=== PATIENT | female | born 1985 | race Caucasian/White ===

== ENCOUNTER 2018-07-18 16:41 | Emergency (ER) | payer BC, OTHER ==
[2018-07-18] MEDS ORDERED: Lidocaine 1% 20 ML MDV INJECT ONE (16:56)
[2018-07-18] MEDS ORDERED: Bupivacaine 0.5% 10 ML SDV INJECT ONE (16:56)
[2018-07-18] MEDS ORDERED: Diphtheria,Pertussis(Acell),Tetanus Vaccine 0.5 ML Syringe IM ONE (16:57)
--- NOTE | 2018-07-18 17:00 | EDM.PDOC ---
<Saúl Somers E - Last Filed: 07/18/18 18:31> ED HPI GENERAL MEDICAL PROBLEM - General Chief Complaint: Upper Extremity Injury/Pain Stated Complaint: INJURED FINGER Time Seen by Provider: 07/18/18 16:56 Source of Information: Reports: Patient History Limitations: Reports: No Limitations - History of Present Illness INITIAL COMMENTS - FREE TEXT/NARRATIVE: HISTORY AND PHYSICAL: Please note that Dr. Matthew had initially signed up for this patient but I evaluated and sutured the patient. Please see my H&P. History of present illness: Patient is a 32-year-old female who presents to the ED today after cutting her left ring finger on a jar of salsa the grocery store. She states that the jar of salsa fell and she went to go grab it slicing her finger just prior to arrival to the ED. She states she had moderate bleeding presented to the ED right away. She feels dizzy, lightheaded, and cold. She is up-to-date with her tetanus vaccine. She states she is able to feel and move the finger without difficulty. She states her pain is an 8 out of 10. She states she has had to have sutures in the past which have bled more than normal but does not have any bleeding disorder that she is aware of. She denies fever, chills, vomiting, diarrhea, difficulties breathing, shortness of breath, chest pain, or all or GI/ cardiovascular respiratory symptoms. She denies any health history. Review of systems: As per history of present illness and below otherwise all systems reviewed and negative. Past medical history: As per history of present illness and as reviewed below otherwise noncontributory. Surgical history: As per history of present illness and as reviewed below otherwise noncontributory. Social history: See social history for further information Family history: As per history of present illness and as reviewed below otherwise noncontributory. Physical exam: General: Patient is alert, oriented, in mild distress. She is clammy and nervous about her finger. Nontoxic appearing and in no acute distress. HEENT: Atraumatic, normocephalic, pupils equal and reactive bilaterally, negative for conjunctival pallor or scleral icterus, mucous membranes moist, TMs normal bilaterally, throat clear, neck supple, nontender, trachea midline. No drooling or trismus noted. No meningeal signs. No hot potato voice noted. Lungs: Clear to auscultation, breath sounds equal bilaterally, chest nontender. Heart: S1S2, regular rate and rhythm without overt murmur Abdomen: Soft, nondistended, nontender. Negative for masses or hepatosplenomegaly. Negative for costovertebral tenderness. Pelvis: Stable nontender. Genitourinary: Deferred. Rectal: Deferred. Skin: See EXTREMITIES. Otherwise skin is intact, warm, dry. No lesions or rashes noted. Extremities: On left hand, there is a 3 cm laceration on the volar aspect of the fourth digit. Patient was able to feel the finger and move finger. Laceration did not involve the nail bed as it is mid finger. Appears to have no tendon involvement. Capillary refill less than 3 seconds. Strong radial pulse. Neurovascular unremarkable. Neuro: Patient does have full strength and sensation of all fingers on her right hand. She has full strength the right arm. Radial pulse is intact. Awake, alert, oriented. Cranial nerves II through XII unremarkable. Cerebellum unremarkable. Motor and sensory unremarkable throughout. Exam nonfocal. Notes: I was called in by the nurse to come assess the patient quickly. Upon initial exam, patient was clammy and embracing her right arm. She was holding a grocery bag over her right hand with about 2 cups worth of blood in the bag. I immediately applied tourniquet to her right arm to stop the bleeding. IV was placed and fluids were started immediately. Bleeding stopped following tourniquet placement. I was then able to anesthetize the area using 1% lidocaine and .5% bupivacaine. Patient was no longer clammy and was in no acute distress. I then used standard protocol for suture placement. I explored the wound and was then unable to visualize any actively bleeding artery with release of tourniquet. I was able to visualize tendon which was intact. She was asked to move fingers and she was able to do so. Dr. Matthew did confirm there was not an actively bleeding artery requiring suture tie. The bleeding appeared to be generalized from the surrounding skin tissue. Sutures were placed according to protocol. No bleeding was noted upon final closure of wound. Patient tolerated the procedure well and then was taken to imaging. Finger fourth digit x-ray shows no acute osseous injury or abnormalities noted. Discussed with patient the need to have sutures removed in 7-10 days. Also discussed with patient the need for follow-up with either her primary care provider or hand surgeon (Dr. Duarte). Patient does feel improved and has been up moving in the room without any concerns of feeling lightheaded. Her vital signs are stable. Patient expresses her understanding and agrees to plan of care. Diagnostics: Fourth digit x-ray. Therapeutics: Sutures, lidocaine 1%, bupivacaine 0.5% Prescription: None Impression: 1. Fourth digit laceration, left Plan: 1. You can take ibuprofen and tylenol as needed for finger pain. 2. You will need the sutures removed in approximately 7-10 days. You can return to the ED to have these removed. 3. You can use ice for 10 minutes every few hours to help minimize swelling. 4. Follow up with primary care provider of hand surgeon (Dr. Duarte) in the next 1-2 days. 5. Return to the ED as needed and as discussed. Definitive disposition and diagnosis as appropriate pending reevaluation and review of above. - Related Data Allergies Allergy/AdvReac Type Severity Reaction Status Date / Time No Known Allergies Allergy Verified 07/18/18 16:57 Home Meds: Home Meds . [No Known Home Meds] 07/18/18 [History] Review of Systems - Review of Systems Review Of Systems: ROS reveals no pertinent complaints other than HPI. ED EXAM, GENERAL - Physical Exam Exam: See Below ED TRAUMA EXTREMITY PROCEDURES - Laceration/Wound Repair Right Digit - 4th (Ring) Lac/Wound Length In cm: 3 Appearance: Irregular, Clean Distal NVT: Neuro & Vascular Intact, No Tendon Injury Anesthetic Type: Digital Local Anesthesia - Lidocaine (Xylocaine): 1% Plain Local Anesthesia - Bupivicaine (Marcaine): 0.5% Plain Local Anesthetic Volume: 4cc Skin Prep: Chlorhexidine (Hibiciens) Exploration/Debridement/Repair: Wound Explored, Explored to Base Closed With: Sutures Suture Size: other (5-0) # of Sutures: 8 Suture Type: Silk Sterile Dressing Applied: Nurse Tetanus Status Addressed: Yes Complications: No Course - Vital Signs Last Recorded V/S: Last Vital Signs Temp 97.2 F 07/18/18 16:55 Pulse 72 07/18/18 16:55 Resp 18 07/18/18 16:55 BP 143/84 H 07/18/18 16:55 Pulse Ox 97 07/18/18 16:55 - Orders/Labs/Meds Orders: Active Orders 24 hr Category Date Time Status Vaccines to be Administered [RC] PER UNIT ROUTINE Care 07/18/18 16:58 Active Meds: Medications Discontinued Medications Generic Name Dose Route Start Last Admin Trade Name Humble PRN Reason Stop Dose Admin Bupivacaine HCl 10 ml 07/18/18 16:56 07/18/18 17:20 Sensorcaine-Mpf 0.5% INJECT 07/18/18 16:57 5 ml ONETIME ONE Administration Diphtheria/Tetanus/Acell Pertussis 0.5 ml 07/18/18 16:57 07/18/18 18:40 Adacel IM 07/18/18 16:58 0.5 ml .ONCE ONE Administration Lidocaine HCl Confirm 07/18/18 17:06 07/18/18 17:20 Xylocaine-Mpf 1% Administered 07/18/18 17:07 1 mls/hr Dose Administration 10 mls @ as directed .ROUTE .STK-MED ONE Lidocaine HCl 20 ml 07/18/18 16:56 07/18/18 19:24 Xylocaine 1% INJECT 07/18/18 16:57 Not Given ONETIME ONE Departure - Departure Time of Disposition: 18:32 Disposition: Home, Self-Care 01 Clinical Impression: Laceration - Discharge Information Instructions: Laceration Care, Adult Referrals: PCP,None [Primary Care Provider] - Forms: ED Department Discharge Additional Instructions: The following information is given to patients seen in the emergency department who are being discharged to home. This information is to outline your options for follow-up care. We provide all patients seen in our emergency department with a follow-up referral. The need for follow-up, as well as the timing and circumstances, are variable depending upon the specifics of your emergency department visit. If you don't have a primary care physician on staff, we will provide you with a referral. We always advise you to contact your personal physician following an emergency department visit to inform them of the circumstance of the visit and for follow-up with them and/or the need for any referrals to a consulting specialist. The emergency department will also refer you to a specialist when appropriate. This referral assures that you have the opportunity for follow-up care with a specialist. All of these measure are taken in an effort to provide you with optimal care, which includes your follow-up. Under all circumstances we always encourage you to contact your private physician who remains a resource for coordinating your care. When calling for follow-up care, please make the office aware that this follow-up is from your recent emergency room visit. If for any reason you are refused follow-up, please contact the [facility] Emergency Department at and asked to speak to the emergency department charge nurse. [facility] [address] [place] [id number] [facility] [address] [place] [address] [id number] [facility] Specialty Care - Plastic Surgery Professional Building [address] [place] [address], [address] [place] [address] 1. You can take ibuprofen and tylenol as needed for finger pain. 2. You will need the sutures removed in approximately 7-10 days. You can return to the ED to have these removed. 3. You can use ice for 10 minutes every few hours to help minimize swelling. 4. Follow up with primary care provider of hand surgeon (Dr. Duarte) in the next 1-2 days.. 5. Return to the ED as needed and as discussed. - My Orders Last 24 Hours: My Active Orders 07/18/18 16:58 Vaccines to be Administered [RC] PER UNIT ROUTINE - Assessment/Plan Last 24 Hours: My Active Orders 07/18/18 16:58 Vaccines to be Administered [RC] PER UNIT ROUTINE <Shilpa Matthew - Last Filed: 07/19/18 10:20> ED HPI GENERAL MEDICAL PROBLEM - General Source of Information: Reports: Patient History Limitations: Reports: No Limitations - History of Present Illness INITIAL COMMENTS - FREE TEXT/NARRATIVE: History of present illness: [] Review of systems: As per history of present illness and below otherwise all systems reviewed and negative. Past medical history: As per history of present illness and as reviewed below otherwise noncontributory. Surgical history: As per history of present illness and as reviewed below otherwise noncontributory. Social history: No reported history of drug or alcohol abuse. Family history: As per history of present illness and as reviewed below otherwise noncontributory. Physical exam: General: Well developed, well nourished in NAD HEENT: Atraumatic, normocephalic, pupils reactive, negative for conjunctival pallor or scleral icterus, mucous membranes moist, throat clear, neck supple, nontender, trachea midline. Lungs: Clear to auscultation, breath sounds equal bilaterally, chest nontender. Heart: S1S2, regular, negative for clicks, rubs, or JVD. Abdomen: NABS, Soft, nondistended, nontender. Negative for masses or hepatosplenomegaly. Negative for costovertebral tenderness. Pelvis: Stable nontender. Genitourinary: Deferred. Rectal: Deferred. Extremities: Atraumatic, negative for cords or calf pain. Neurovascular unremarkable. Neuro: Awake, alert, oriented. Cranial nerves II through XII unremarkable. Cerebellum unremarkable. Motor and sensory unremarkable throughout. Exam nonfocal. Skin:warm and dry Diagnostics: Therapeutics: ED Course: Impression: Prescriptions: Plan: Definitive disposition and diagnosis as appropriate pending reevaluation and review of above. Right Finger-Ring Pain Score (Numeric/FACES): 4 Review of Systems - Review of Systems Review Of Systems: ROS reveals no pertinent complaints other than HPI. ED EXAM, GENERAL - Physical Exam Exam: See Below (See history of present illness)
--- NOTE | 2018-07-18 18:21 | CR ---
INDICATION: Laceration to 4th digit TECHNIQUE: Finger radiograph 3 views right 4th COMPARISON: None FINDINGS: Evaluation of the digits on the lateral examination is moderately degraded due to overlapped finger positioning. Bone: No acute fractures or aggressive bone lesions are identified. Joint: The metacarpophalangeal and interphalangeal joints are normal in appearance. Soft tissue: Unremarkable. No radiopaque foreign bodies are seen. IMPRESSION: 1. No acute osseous injuries or abnormalities are noted. Dictated by Anselmo Cabrera MD @ 07/18/2018 6:19:17 PM Dictated by: Anselmo Cabrera MD @ 07/18/2018 18:20:28 (Electronically Signed)
== END 2018-07-18 18:50 | disposition home or self-care (01) ==
LOC: MW.ED 16:41
DX: S61.214A Laceration without foreign body of right ring finger without damage to nail, initial encounter (principal); Z23 Encounter for immunization; W26.8XXA Contact with other sharp object(s), not elsewhere classified, initial encounter; Y92.512 Supermarket, store or market as the place of occurrence of the external cause
CPT/HCPCS: 12002; 73140; 90471; 90715; 99282; J3490

== ENCOUNTER 2018-07-20 14:31 | Emergency (ER) | payer BC ==
--- NOTE | 2018-07-20 15:04 | EDM.PDOC ---
ED HPI GENERAL MEDICAL PROBLEM - General Chief Complaint: Wound Recheck Stated Complaint: INJURED FINGER Time Seen by Provider: 07/20/18 14:57 Source of Information: Reports: Patient History Limitations: Reports: No Limitations - History of Present Illness INITIAL COMMENTS - FREE TEXT/NARRATIVE: HISTORY AND PHYSICAL: History of present illness: Patient is a 32-year-old female here with wound recheck. She was seen in the ED 2 days ago after cutting her finger and received sutures on the right ring finger. She states she just took the dressing off today and was concerned about the color of her finger and states it felt warm and she still does not have feeling in the tip of her finger. She denies any purulent drainage from the wound and no fevers. Review of systems: As per history of present illness and below otherwise all systems reviewed and negative. Past medical history: As per history of present illness and as reviewed below otherwise noncontributory. Surgical history: As per history of present illness and as reviewed below otherwise noncontributory. Social history: No reported history of drug or alcohol abuse. Family history: As per history of present illness and as reviewed below otherwise noncontributory. Physical exam: General: Patient sitting comfortably in no acute distress and nontoxic appearing HEENT: Atraumatic, normocephalic, pupils reactive, negative for conjunctival pallor or scleral icterus, mucous membranes moist, throat clear, neck supple, nontender, trachea midline. No meningeal signs. Lungs: Clear to auscultation, breath sounds equal bilaterally, chest nontender. Heart: S1S2, regular, negative for clicks, rubs, or overt murmur. Abdomen: Soft, nondistended, nontender. Negative for masses or hepatosplenomegaly. Negative for costovertebral tenderness. Pelvis: Stable nontender. Genitourinary: Deferred. Rectal: Deferred. Extremities: Sutures are in place on the palmar aspect of the right ring finger without any surrounding erythema, warmth or purulent drainage. There is slight ecchymotic area on the ulnar side of the finger. Normal capillary refill. negative for cords or calf pain. Neurovascular unremarkable. Neuro: Awake, alert, oriented. Cranial nerves II through XII unremarkable. Cerebellum unremarkable. Motor and sensory unremarkable throughout. Exam nonfocal. Notes: Figure does not appear to be infected and explained to the patient that due to the injury there is some swelling which is causing the ecchymosis, warmth and likely the diminished sensation in the tip of the finger which should resolved as the wound heals and swelling resolves. Diagnostics: None Therapeutics: None Prescriptions: None Impression: Wound recheck Plan: 1. Keep the area clean and dry as instructed. 2. Follow-up with Dr. Duarte as discussed at your previous visit 3. Return to ED as needed as discussed Definitive disposition and diagnosis as appropriate pending reevaluation and review of above. Right Finger-Index Pain Score (Numeric/FACES): 2 - Related Data Allergies Allergy/AdvReac Type Severity Reaction Status Date / Time No Known Allergies Allergy Verified 07/20/18 14:49 Home Meds: Home Meds . [No Known Home Meds] 07/18/18 [History] Past Medical History - Past Health History Medical/Surgical History: Denies Medical/Surgical History Cardiovascular History: Reports: Heart Murmur Social & Family History - Family History Family Medical History: Noncontributory - Tobacco Use Smoking Status *Q: Current Every Day Smoker Years of Tobacco use: 15 Packs/Tins Daily: 0.5 - Caffeine Use Caffeine Use: Reports: Coffee - Recreational Drug Use Recreational Drug Use: No ED ROS GENERAL - Review of Systems Review Of Systems: ROS reveals no pertinent complaints other than HPI. ED EXAM, SKIN/RASH Exam: See Below (see dictation) Course - Vital Signs Last Recorded V/S: Last Vital Signs Temp 98.2 F 07/20/18 14:47 Pulse 68 07/20/18 14:47 Resp 18 07/20/18 14:47 BP 115/71 07/20/18 14:47 Pulse Ox 100 07/20/18 14:47 Departure - Departure Time of Disposition: 14:57 Disposition: Home, Self-Care 01 Condition: Good Clinical Impression: Encounter for wound re-check - Discharge Information Referrals: PCP,Unknown [Primary Care Provider] - Additional Instructions: The following information is given to patients seen in the emergency department who are being discharged to home. This information is to outline your options for follow-up care. We provide all patients seen in our emergency department with a follow-up referral. The need for follow-up, as well as the timing and circumstances, are variable depending upon the specifics of your emergency department visit. If you don't have a primary care physician on staff, we will provide you with a referral. We always advise you to contact your personal physician following an emergency department visit to inform them of the circumstance of the visit and for follow-up with them and/or the need for any referrals to a consulting specialist. The emergency department will also refer you to a specialist when appropriate. This referral assures that you have the opportunity for follow-up care with a specialist. All of these measure are taken in an effort to provide you with optimal care, which includes your follow-up. Under all circumstances we always encourage you to contact your private physician who remains a resource for coordinating your care. When calling for follow-up care, please make the office aware that this follow-up is from your recent emergency room visit. If for any reason you are refused follow-up, please contact the [facility] Emergency Department at and asked to speak to the emergency department charge nurse. [facility] Specialty Care - Hand & Plastic Surgery Professional Building [address] [place] [address], [address] [place] [address] 1. Keep the Area clean and dry as instructed. 2. Follow-up with Dr. Duarte as discussed at your previous visit 3. Return to ED as needed as discussed
== END 2018-07-20 15:22 | disposition home or self-care (01) ==
LOC: MW.ED 14:31
DX: S61.214D Laceration without foreign body of right ring finger without damage to nail, subsequent encounter (principal); F17.210 Nicotine dependence, cigarettes, uncomplicated; W26.8XXD Contact with other sharp object(s), not elsewhere classified, subsequent encounter
CPT/HCPCS: 99282

== ENCOUNTER 2018-08-02 12:37 | Emergency (ER) | payer BC | END 2018-08-02 13:28 | disposition left against medical advice (07) | LOC: MW.ED 12:37 | DX: Z53.21 Procedure and treatment not carried out due to patient leaving prior to being seen by health care provider (principal) | CPT/HCPCS: 99281 ==

== ENCOUNTER 2018-08-06 11:56 | Emergency (ER) | payer BC ==
--- NOTE | 2018-08-06 12:26 | EDM.PDOC ---
ED HPI GENERAL MEDICAL PROBLEM - General Chief Complaint: Upper Extremity Injury/Pain Stated Complaint: PAIN TO RIGHT RING FINGER Time Seen by Provider: 08/06/18 11:57 - History of Present Illness INITIAL COMMENTS - FREE TEXT/NARRATIVE: HISTORY AND PHYSICAL: History of present illness: Patient's a 32-year-old white female presents with concern of wound check she had a laceration to the fourth digit of her right hand and soup was sutured on the ninth of this month she's had some hypertrophy of the wound with some mild dehiscence. Review of systems: As per history of present illness and below otherwise all systems reviewed and negative. Past medical history: As per history of present illness and as reviewed below otherwise noncontributory. Surgical history: As per history of present illness and as reviewed below otherwise noncontributory. Social history: No reported history of drug or alcohol abuse. Family history: As per history of present illness and as reviewed below otherwise noncontributory. Physical exam: Extremities: Prominence of the healing wound noted no evidence of infection tendon exam grossly unremarkable as is neurovascular Diagnostics: Wound check Therapeutics: None Impression: 1 wound check Definitive disposition and diagnosis as appropriate pending reevaluation and review of above. - Related Data Allergies Allergy/AdvReac Type Severity Reaction Status Date / Time No Known Allergies Allergy Verified 08/06/18 12:17 Home Meds: Home Meds . [No Known Home Meds] 07/18/18 [History] Past Medical History - Past Health History Medical/Surgical History: Denies Medical/Surgical History Cardiovascular History: Reports: Heart Murmur Social & Family History - Family History Family Medical History: Noncontributory - Caffeine Use Caffeine Use: Reports: Coffee Review of Systems - Review of Systems Review Of Systems: ROS reveals no pertinent complaints other than HPI. ED EXAM, GENERAL - Physical Exam Exam: See Below (See dictation) Course - Vital Signs Last Recorded V/S: Last Vital Signs Temp 36.3 C 08/06/18 12:15 Pulse 72 08/06/18 12:15 Resp 16 08/06/18 12:15 BP 141/76 H 08/06/18 12:15 Pulse Ox 99 08/06/18 12:15 - Orders/Labs/Meds Orders: Active Orders 24 hr Category Date Time Status Hand Comp Min 3V Rt [CR] Stat Exams 08/06/18 11:58 Ordered Departure - Departure Time of Disposition: 12:25 Disposition: Home, Self-Care 01 Condition: Good Clinical Impression: Visit for wound check - Discharge Information Referrals: PCP,None [Primary Care Provider] - Additional Instructions: The following information is given to patients seen in the emergency department who are being discharged to home. This information is to outline your options for follow-up care. We provide all patients seen in our emergency department with a follow-up referral. The need for follow-up, as well as the timing and circumstances, are variable depending upon the specifics of your emergency department visit. If you don't have a primary care physician on staff, we will provide you with a referral. We always advise you to contact your personal physician following an emergency department visit to inform them of the circumstance of the visit and for follow-up with them and/or the need for any referrals to a consulting specialist. The emergency department will also refer you to a specialist when appropriate. This referral assures that you have the opportunity for followup care with a specialist. All of these measure are taken in an effort to provide you with optimal care, which includes your followup. Under all circumstances we always encourage you to contact your private physician who remains a resource for coordinating your care. When calling for followup care, please make the office aware that this follow-up is from your recent emergency room visit. If for any reason you are refused follow-up, please contact the [facility] emergency department at and asked to speak to the emergency department charge nurse. Follow-up primary medical doctor in hand surgery as needed as discussed return as needed as discussed - My Orders Last 24 Hours: My Active Orders 08/06/18 11:58 Hand Comp Min 3V Rt [CR] Stat - Assessment/Plan Last 24 Hours: My Active Orders 08/06/18 11:58 Hand Comp Min 3V Rt [CR] Stat
--- NOTE | 2018-08-06 13:04 | CR ---
EXAMINATION: Right hand HISTORY: Pain COMPARISON: None TECHNIQUE: 3 views FINDINGS/IMPRESSION: There is no acute osseous abnormality, dislocation, or fracture. Bone mineralization and joint spaces are preserved. No focal soft tissue swelling. Radiocarpal alignment is normal.
== END 2018-08-06 12:44 | disposition home or self-care (01) ==
LOC: MW.ED 11:56
DX: S61.214D Laceration without foreign body of right ring finger without damage to nail, subsequent encounter (principal); W26.8XXD Contact with other sharp object(s), not elsewhere classified, subsequent encounter
CPT/HCPCS: 73130-26-RT; 73130-RT; 99282; 99283-25